=== PATIENT | female | born 1935 | race Caucasian/White ===

== ENCOUNTER 2017-10-07 06:53 | Emergency (ER) | payer MEDICARE ==
--- NOTE | 2017-10-07 08:16 | RAD ---
AP PELVIS: HISTORY: Left-sided hip pain. FINDINGS: There is a subcapital fracture of the left femoral neck with associated foreshortening. POS: [facility]
--- NOTE | 2017-10-07 08:17 | RAD ---
LEFT HIP TWO VIEWS: HISTORY: Left hip pain. FINDINGS: There is a fracture involving the subcapital region of the neck of the left femur with associated for eshortening. POS: [facility]
[2017-10-07] MEDS ORDERED: Fentanyl 100 MCG/2 ML VIAL ONE (08:32)
--- NOTE | 2017-10-07 08:53 | RAD ---
PORTABLE CHEST ONE VIEW: 10/07/2017 at 8:31 a.m. HISTORY: Pre-op evaluation. FINDINGS/IMPRESSION: The heart size is enlarged. Bibasilar infiltrates versus atelectasis are seen. No pneumothoraces ar e seen. Small effusions cannot be excluded. There is no evidence of hunter pleural edema. POS: [facility]
[2017-10-07 09:14] LABS: #Lymphocytes 0.7 thou/uL (1.20-3.40); #Monocytes 0.3 thou/uL (0.11-0.59); #Neutrophils 5.1 thou/uL (1.40-6.50); %Basophils 0.3 % (0.0-1.0); %Eosinophils 0.6 % (0.0-10.0); %Lymphocytes 10.9 % (21.0-51.0); %Neutrophils 83.2 % (42.0-75.0); Hemoglobin 11.7 g/dL (12.0-16.0); Mean Corpuscular HGB CONC 34.1 g/dL (32.0-36.0); Mean Corpuscular Hemoglobin 29.5 pg (27.0-31.0); Mean Corpuscular Volume 86.3 fl (81.0-99.0); Mean Platelet Volume 7.8 fL (7.4-10.4); Platelet Count 136 thou/uL (130-400); RBC Distribution Width 13.5 % (11.5-14.5); Red Blood Cell (RBC) Count 3.97 mill/uL (4.20-5.40); White Blood Cell (WBC) Count 6.1 thou/uL (4.8-10.8)
[2017-10-07 09:33] LABS: ALT (SGPT) 14 U/L (8-55); AST (SGOT) 16 U/L (5-34); Albumin 3.6 g/dL (3.4-4.8); Alkaline Phosphatase 122 U/L (40-150); Anion Gap 16 mmol/L (10-20); BUN (Urea Nitrogen) 23 mg/dL (9.8-20.1); Bilirubin, Total 0.4 mg/dL (0.2-1.2); CK (CPK) 45 U/L (29-168); Calc. Creatinine Clearance 0 mL/min (70-130); Calcium 9.5 mg/dL (7.8-10.44); Carbon Dioxide 20 mmol/L (23-31); Chloride 109 mmol/L (98-107); Estimated GFR-MDRD 28; Globulin 2.9 g/dL (2.4-3.5); Glucose 147 mg/dL (83-110); Potassium 3.8 mmol/L (3.5-5.1); Protein, Total 6.5 g/dL (6.0-8.3); Sodium 141 mmol/L (136-145)
[2017-10-07 09:35] LABS: CKMB 1.2 ng/mL (0-6.6); Troponin I Less than 0.010 ng/mL (< 0.028)
== END 2017-10-07 09:10 | disposition short-term general hospital (02) ==
LOC: MADERS 06:53
DX: S72.012A Unspecified intracapsular fracture of left femur, initial encounter for closed fracture (principal); E11.9 Type 2 diabetes mellitus without complications; I10 Essential (primary) hypertension; F03.90 Unspecified dementia, unspecified severity, without behavioral disturbance, psychotic disturbance, mood disturbance, and anxiety; Z79.84 Long term (current) use of oral hypoglycemic drugs; Z79.899 Other long term (current) drug therapy; W19.XXXA Unspecified fall, initial encounter; Y92.009 Unspecified place in unspecified non-institutional (private) residence as the place of occurrence of the external cause
CPT/HCPCS: 36415; 71010; 72170; 80053; 82550; 82553; 83880; 84484; 85025; 93005; 94760; 96374; G0390; J3010

== ENCOUNTER 2017-12-03 15:22 | Emergency (ER) | payer MEDICARE ==
[~2017-12-03 15:22] MED LIST: Sodium Chloride 0.9% 1,000 ML BAG ONE
[2017-12-03] MEDS ORDERED: Ketorolac Tromethamine 30 MG/ML VIAL ONE (15:56)
[2017-12-03] MEDS ORDERED: MORPHINE 10 MG/ML SYRINGE ONE (15:56)
[2017-12-03] MEDS ORDERED: Ondansetron HCl/PF 4 MG/2 ML Vial ONE (15:56)
[2017-12-03 16:02] LABS: #Lymphocytes 0.7 thou/uL (1.20-3.40); #Monocytes 0.5 thou/uL (0.11-0.59); #Neutrophils 8.5 thou/uL (1.40-6.50); %Basophils 0.4 % (0.0-1.0); %Eosinophils 0.2 % (0.0-10.0); %Lymphocytes 6.8 % (21.0-51.0); %Monocytes 4.7 % (0.0-10.0); Mean Corpuscular HGB CONC 32.1 g/dL (32.0-36.0); Mean Corpuscular Hemoglobin 28.2 pg (27.0-31.0); Mean Corpuscular Volume 88.1 fl (81.0-99.0); Mean Platelet Volume 6.4 fL (7.4-10.4); Platelet Count 236 thou/uL (130-400); RBC Distribution Width 12.9 % (11.5-14.5); Red Blood Cell (RBC) Count 4.26 mill/uL (4.20-5.40); White Blood Cell (WBC) Count 9.7 thou/uL (4.8-10.8)
[2017-12-03 16:22] LABS: ALT (SGPT) 9 U/L (8-55); AST (SGOT) 14 U/L (5-34); Albumin 4.1 g/dL (3.4-4.8); Alkaline Phosphatase 148 U/L (40-150); Anion Gap 17 mmol/L (10-20); BUN (Urea Nitrogen) 29 mg/dL (9.8-20.1); Bilirubin, Total 0.6 mg/dL (0.2-1.2); Calc. Creatinine Clearance 0 mL/min (70-130); Calcium 10.6 mg/dL (7.8-10.44); Carbon Dioxide 22 mmol/L (23-31); Chloride 106 mmol/L (98-107); Estimated GFR-MDRD 26; Globulin 3.2 g/dL (2.4-3.5); Glucose 129 mg/dL (83-110); Potassium 4.6 mmol/L (3.5-5.1); Protein, Total 7.3 g/dL (6.0-8.3); Sodium 140 mmol/L (136-145); Uric Acid 5.9 mg/dL (2.6-6.0)
[2017-12-03 16:48] LABS: Bilirubin Negative (Negative); Blood, Urine Small (Negative); Clarity Slightly Cloudy (Clear); Glucose, Urine (Dipstick) Negative (Negative); Leukocyte Negative (Negative); Nitrite Negative (Negative); Protein, Urine (Dipstick) 100 mg/dL (Neg-Trace); Urobilinogen 0.2 mg/dL (0.2-1.0)
[2017-12-03 16:53] LABS: Bacteria/HPF 2+ HPF (None Seen); RBC/HPF 0-3 HPF (0-3); Squamous Epithelial 0-3 HPF (0-3); WBC/HPF 0-3 HPF (0-3)
[2017-12-03] MEDS ORDERED: traMADol HCl 50 MG TAB ONE (16:59)
[2017-12-03] MEDS ORDERED: HYDROcodone/Acetaminophen 10/325 mg Tablet ONE (16:59)
--- NOTE | 2017-12-03 17:04 | RAD ---
LEFT HIP 2 VIEWS: Date: 12/03/17 HISTORY: Joint pain. COMPARISON: 10/07/17. FINDINGS: Left hip prosthesis is again noted. Components appear in adequate position and alignment. No evidence of loosening. No fracture or acute osseous lesion. No interval change. IMPRESSION: No acute findings. POS: [facility]
--- NOTE | 2017-12-03 17:18 | RAD ---
LEFT KNEE 4 VIEWS: Date: 12/03/17 HISTORY: Joint pain. FINDINGS: Medial and lateral joint spaces are maintained. Chondrocalcinosis is seen in both medial and lateral joints. Mild degenerative change is seen; however, only mild spurring is seen from the tibial spines, condyles, and patella. There is evidence of a joint effusion in the suprapatellar region. IMPRESSION: Mild degenerative changes consistent with chondrocalcinosis and mild degenerative osteophytes. Joint effusion is noted in a suprapatellar region. No acute fracture. POS: [facility]
== END 2017-12-03 17:15 | disposition home or self-care (01) ==
LOC: MADERS 15:22
DX: S86.911A Strain of unspecified muscle(s) and tendon(s) at lower leg level, right leg, initial encounter (principal); E11.22 Type 2 diabetes mellitus with diabetic chronic kidney disease; N18.9 Chronic kidney disease, unspecified; M25.461 Effusion, right knee; I12.9 Hypertensive chronic kidney disease with stage 1 through stage 4 chronic kidney disease, or unspecified chronic kidney disease; F03.90 Unspecified dementia, unspecified severity, without behavioral disturbance, psychotic disturbance, mood disturbance, and anxiety; Z79.84 Long term (current) use of oral hypoglycemic drugs; Z79.899 Other long term (current) drug therapy
CPT/HCPCS: 36415; 80053; 81001; 84550; 85025; 85652; 87086; 96361; 96374; 96375; A4353; J1885; J2270; J2405; J7050